=== PATIENT | male | born 2000 | race Caucasian/White ===

== ENCOUNTER 2022-07-15 22:53 | Emergency (ER) | payer MEDICAID ==
[~2022-07-15] VITALS: Ht 177.8 cm; Wt 68.0 kg
[2022-07-16] MEDS ORDERED: ACETAMINOPHEN 325MG TABLET PO ONE
[2022-07-16 00:15] VITALS: BP 171/146
[2022-07-16] MEDS ORDERED: HYDROCODONE/ACETAMINOPHEN 5/325MG TABLET PO ONE (00:15)
[2022-07-16] MEDS ORDERED: LIDOCAINE HCL/PF 1% 10 MG/ML 5ML VIAL INFIL ONE (00:15)
[2022-07-16] MEDS: CHLORHEXIDINE GLUCONATE 0.12% MOUTHWASH UDC SSP SCH ×3 (00:22→00:38)
[2022-07-16] MEDS ORDERED: CHLO473M2 MT (02:45)
[2022-07-16] MEDS ORDERED: IBUP-2029 MT (02:45)
[2022-07-16] MEDS ORDERED: HYDR-4001 MT (03:44)
[2022-07-16] MEDS ORDERED: KETOROLAC 30MG/ML VIAL IM ONE (03:45)
== END 2022-07-16 04:04 | disposition home or self-care (01) ==
LOC: ER 22:53
DX: S02.2XXA Fracture of nasal bones, initial encounter for closed fracture (principal); S10.93XA Contusion of unspecified part of neck, initial encounter; W22.8XXA Striking against or struck by other objects, initial encounter; Y93.89 Activity, other specified; Y92.89 Other specified places as the place of occurrence of the external cause; Y99.8 Other external cause status
CPT/HCPCS: 12014; 70450; 70486; 71045; 72125; 96372; 99285; J1885; J3490; Z7610

== ENCOUNTER 2022-07-21 15:08 | Emergency (ER) | payer MEDICAID ==
[~2022-07-21] VITALS: Ht 170.2 cm; Wt 73.0 kg
[~2022-07-21 15:08] MED LIST: CHLO473M2 MT; HYDR-4001 MT; IBUP-2029 MT
[2022-07-21 15:14] VITALS: BP 126/73
[2022-07-21] MEDS ORDERED: BACITRACIN ZINC OINT UDPKT TOP ONE (15:30)
== END 2022-07-21 15:37 | disposition home or self-care (01) ==
LOC: ER 15:08
DX: S01.511D Laceration without foreign body of lip, subsequent encounter (principal); Z48.02 Encounter for removal of sutures; X58.XXXD Exposure to other specified factors, subsequent encounter
CPT/HCPCS: 99282

== ENCOUNTER 2024-11-15 03:42 | Emergency (ER) | payer MEDICAID ==
[~2024-11-15] VITALS: Ht 175.3 cm; Wt 63.0 kg
[~2024-11-15 03:42] MED LIST changes: +IBUP-1455 MT; -IBUP-2029 MT
[2024-11-15 03:47] VITALS: BP 100/45; TEMP 37; O2SAT 99
[2024-11-15 03:48] VITALS: PULSE 83; RESP 16; O2SAT 100
[2024-11-15] MEDS ORDERED: AMOX1TAB16 MT (05:24)
== END 2024-11-15 06:52 | disposition home or self-care (01) ==
LOC: ER 03:42
DX: S61.251A Open bite of left index finger without damage to nail, initial encounter (principal); W54.0XXA Bitten by dog, initial encounter; X58.XXXA Exposure to other specified factors, initial encounter; Y93.89 Activity, other specified; Y92.89 Other specified places as the place of occurrence of the external cause; Y99.8 Other external cause status
CPT/HCPCS: 99283